=== PATIENT | female | born 1975 | race Caucasian/White ===

== ENCOUNTER → 2016-07-21 | Day surgery (SDC) | payer BC ==
--- NOTE | 2016-07-22 11:51 | PATH ---
Surgical Pathology Report Patient Name: MARCK VAZ [facility]. Rec. #: [id number] /Age/Gender: 1975 (Age: 41) / F Account: [id number] Location: [facility] Taken: 07/21/2016 Received: 07/21/2016 Reported: 07/22/2016 Physicians: Dimitris Pollack M.D. Specimen(s) Received LEFT BREAST SPECIMEN WITH MASS Clinical History Nonpalpable lesion Mammographic findings: Suspicious Final Diagnosis LEFT BREAST, STEREOTACTIC NEEDLE CORE BIOPSY: FIBROADENOMA, AND BENIGN BREAST TISSUE WITH FIBROCYSTIC CHANGES INCLUDING STROMAL FIBROSIS AND DUCTAL DILATATION WITH RARE ASSOCIATED CALCIFICATION. Comment: Recommend correlation with clinical and radiologic findings and follow up as clinically indicated. Electronically Signed Rogerio Tom M.D. Gross Description Received in formalin, labeled "left breast with mass," are multiple moreno-yellow, cylindrical portions of fibroadipose tissue ranging from 0.5-1.8 cm. in length and averaging 0.2 cm. in diameter. The specimen is submitted in toto in 4 cassette. Time to formalin fixation: 5 minutes Total formalin fixation time: Approximately 9.5 hours. [facility]/07/21/2016 [facility]/07/21/2016
== END | disposition home or self-care (01) ==
LOC: FMAMMOTONE 09:12
PROVIDERS: ATTEND Specialist
PROC: 0HBU0ZX Excision of Left Breast, Open Approach, Diagnostic (ICD-10-PCS; principal; 2016-07-21)
DX: D24.2 Benign neoplasm of left breast (principal); N60.12 Diffuse cystic mastopathy of left breast
CPT/HCPCS: 19081; 88305-TC

== ENCOUNTER 2016-12-02 06:22 | Inpatient (IN) | payer BC ==
[2016-12-01 09:23] VITALS: BMI 34.2
[2016-12-02] MEDS ORDERED: BUPIVACAINE HCL/PF 0.25% (2.5MG/ML) 10 ML VIAL ONE (07:55)
[2016-12-02] MEDS ORDERED: MIDAZOLAM HCL 2 MG/2 ML SINGLE DOSE VIAL ONE (07:59)
[2016-12-02] MEDS ORDERED: PROPOFOL 20 ML ONE ×3 (08:00)
[2016-12-02] MEDS ORDERED: ROCURONIUM BROMIDE 50 MG/5 ML VIAL ONE ×2 (08:00→09:07)
[2016-12-02] MEDS ORDERED: SUCCINYLCHOLINE CHLORIDE 200 MG/10 ML VIAL ONE (08:12)
[2016-12-02] MEDS ORDERED: ceFAZolin SODIUM 1 GM VIAL IVPB ONE (08:30)
[2016-12-02] MEDS ORDERED: HYDROmorphone HCL/PF 1 MG/ML VIAL (FOR PYXIS CHARGING ONLY) ONE ×2 (08:45→09:46)
[2016-12-02] MEDS ORDERED: NEOSTIGMINE METHYLSULFATE 0.5 MG/ML - 10 ML MDV ONE (08:59)
[2016-12-02] MEDS ORDERED: HYDROCORTISONE SOD SUCCINATE 2 ML ONE (09:45)
[2016-12-02] MEDS ORDERED: BUPIVACAINE HCL/PF 0.25% (2.5MG/ML) 10 ML VIAL STI ONE (10:26)
[2016-12-02] MEDS ORDERED: ONDANSETRON 4 MG/2 ML VIAL IVPB PRN (10:30)
[2016-12-02] MEDS ORDERED: METOCLOPRAMIDE HCL INJECTION 10 MG/2 ML VIAL IVPB PRN (10:32)
[2016-12-02] MEDS ORDERED: ONDANSETRON 4 MG/2 ML VIAL IVPUSH PRN (10:46)
[2016-12-02] MEDS ORDERED: METOCLOPRAMIDE HCL INJECTION 10 MG/2 ML VIAL ONE (10:57)
[2016-12-02] MEDS ORDERED: LACTATED RINGERS SOLUTION 1,000 ML IV SCH (11:00)
[2016-12-02] MEDS ORDERED: PROMETHAZINE HCL 25 MG/1 ML VIAL ONE (11:08)
[2016-12-02] MEDS ORDERED: PROMETHAZINE HCL 25 MG/1 ML VIAL IVPB PRN (11:10)
[2016-12-02 11:35] LABS: MCH 29.7 pg (25.7-33.7); MCHC 33.4 g/dl (32.0-36.0); MEAN PLT VOLUME 8.7 fl (7.5-11.1); PLATELET COUNT 151 K/MM3 (134-434); RDW 14.2 % (11.6-15.6); WHITE BLOOD COUNT 12.7 K/mm3 (4.0-10.0)
[2016-12-02 12:03] LABS: ALBUMIN 3.9 g/dl (3.4-5.0); ALK PHOS 60 U/L (45-117); ANION GAP 8 (8-16); BILIRUBIN,TOTAL 0.6 mg/dL (0.2-1.0); CALCIUM 8.3 mg/dL (8.5-10.1); CO2 27 mmol/L (21-32); CREATININE 0.9 mg/dL (0.55-1.02); GLUCOSE,RANDOM 163 mg/dL (74-106); SGOT/AST 20 U/L (15-37); SGPT/ALT 32 U/L (12-78); TOT PROT 6.9 g/dl (6.4-8.2)
--- NOTE | 2016-12-02 12:36 | HP ---
DATE OF ADMISSION: 12/02/2016 CHIEF COMPLAINT: Morbid obesity. HISTORY OF PRESENT ILLNESS: This patient is a 41-year-old woman with a history of morbid obesity despite many attempts at dietary weight loss. The patient also has sleep apnea, which is significant because of her morbid obesity, and she was worked up with cardiac, nutrition, psychological evaluations and clearances prior to undergoing elective sleeve gastrectomy surgery. PAST MEDICAL HISTORY: Significant for: 1. Hypothyroidism. 2. Anxiety. PAST SURGICAL HISTORY: Significant for: 1. Laparoscopic cholecystectomy. 2. Hysterectomy. 3. Tubal ligation. ALLERGIES: Patient has no known allergies. REVIEW OF SYSTEMS: 1. Review of the pulmonary system within normal limits. 2. Review of the cardiovascular within normal limits. 3. Review of the gastrointestinal system within normal limits. 4. Review of the musculoskeletal system within normal limits. PHYSICAL EXAMINATION: General: Patient is awake, alert, slightly to moderately anxious, in no acute distress. HEENT: No masses palpated. Lungs: Clear bilaterally. Heart: Regular sinus rhythm. Abdomen: Well-healed incisions, positive for obesity, soft, nontender on palpation. Extremities: Within normal limits. IMPRESSION: Morbid obesity. PLAN: OR for laparoscopic vertical sleeve gastrectomy. Lion [id number]
--- NOTE | 2016-12-02 13:37 | OP ---
DATE OF OPERATION: 12/02/2016 PREOPERATIVE DIAGNOSES: 1. Morbid obesity. 2. Sleep apnea. POSTOPERATIVE DIAGNOSES: 1. Morbid obesity. 2. Sleep apnea. 3. Abdominal adhesions. PROCEDURE PERFORMED: 1. Laparoscopic vertical sleeve gastrectomy. 2. Laparoscopic lysis of adhesions. 3. Diagnostic laparoscopy. OPERATING SURGEON: Catalino Graham MD CAN[employer]AS GOODS SUPERVISOR: Jose M Meza MD ANESTHESIA: General. EXPECTED BLOOD LOSS: 30 mL. DESCRIPTION OF PROCEDURE: The patient was brought into the operating room, placed on the OR table in a supine position. All precautions were taken initially including padding for the back and the feet, and Venodyne boots were placed on both lower extremities. At that point, the abdomen was prepped and draped in the usual manner. A Veress needle was placed in the left upper quadrant, and a pneumoperitoneum was established. A No. 12 bladeless trocar was placed in the left upper quadrant. Through that trocar, laparoscopic camera was placed. Upon placing the camera, there was noted to be a large amount of adhesions in the left upper quadrant, which was going to reduce the visibility of the stomach. A No. 15 bladeless trocar was then placed in the midline in a supraumbilical position and a No. 5 bladeless trocar in the right upper quadrant. Placing the camera now through the No. 15 trocar in the midline and using a No. 5 right upper quadrant trocar, the adhesions in the left upper quadrant were lysed with laparoscopic scissors. Once they were completely freed up, the left upper quadrant was now free of adhesions, and visualization of the stomach was more proper. At this point, a No. 5 bladeless trocar was placed in the left upper quadrant below the left costal margin. A Olga liver retractor was placed in the epigastrium to retract the left lobe of the liver. The patient was then placed in 20-degree reverse Trendelenburg position, and the pylorus was found on the distal stomach. Then 6 cm was measured proximally to there, and there on the greater curve with the operating surgeon lifting the stomach up toward the anterior abdominal wall, the health information assistant surgeon retracted the gastrocolic ligament inferiorly. The LigaSure device was used to dissect the gastrocolic ligament off the greater curve of the stomach. This continued in a superior and vertical direction as I continued to dissect the short gastric vessels off the greater curve until a final short gastric vessel was divided between the superior pole of the spleen and the proximal fundus. At this juncture, Anesthesia removed the orogastric tube and placed a No. 40 bougie. With the bougie held along the lesser curve, a series of carter was performed with the first 2 carter being backloaded 6 cm in length along the bougie. This was followed by a series of purple load carter continuing until a final staple was fired in the left upper quadrant and the greater curve was now completely detached from the lesser curve. At this juncture, saline was placed around the staple line. Anesthesia inserted air into the bougie, which showed the entire stomach distended down to the pylorus. No obstruction and no leaks were noted. At this point, the resected greater curve was removed through the No. 15 trocar site and sent off the field as specimen. Under direct vision, the No. 15 and No. 12 trocars were closed with Endo Close device to prevent internal hernia and prevent bleeding. Under direct vision, all trocars were removed and pneumoperitoneum was released. All trocar sites then received 0.25% Marcaine and were closed with 4-0 Biosyn in subcuticular fashion. Dressings were applied. The patient was awoken from anesthesia and transferred out of the operating room to the recovery room in stable condition. Lion [id number]
[2016-12-02] MEDS ORDERED: BUPIVACAINE HCL/PF 0.5% (5MG/ML) 10 ML VIAL ONE (13:47)
[2016-12-02] MEDS: SODIUM CHLORIDE 1,000 ML IV SCH (17:00)
[2016-12-02] MEDS ORDERED: ACETAMINOPHEN INJECTION 100 ML IVPB ONE (17:05)
[2016-12-02] MEDS ORDERED: ACETAMINOPHEN 1000 MG/100 ML VIAL (NON FORMULARY) IVPB ONE (17:10)
[2016-12-02] MEDS: ENOXAPARIN NA (PORCINE) 40 MG/0.4 ML DISP.SYRIN SQ SCH (21:12)
[2016-12-02] MEDS: HYDROmorphone HCL CARPU-JECT 1 MG/1 ML DISP.SYRIN IVPB PRN (21:12)
[2016-12-02] MEDS: FAMOTIDINE 20 MG/50 ML IVPB 50 ML IVPB SCH (21:12)
[2016-12-03] MEDS: HYDROmorphone HCL CARPU-JECT 1 MG/1 ML DISP.SYRIN IVPB PRN ×3 (01:45→11:08)
[2016-12-03] MEDS: ACETAMINOPHEN 1000 MG/100 ML VIAL (NON FORMULARY) IVPB PRN ×2 (01:45→09:59)
[2016-12-03] MEDS: SODIUM CHLORIDE 1,000 ML IV SCH (01:45)
[2016-12-03 07:38] LABS: MCH 30.6 pg (25.7-33.7); MCHC 34.4 g/dl (32.0-36.0); MEAN CELL VOLUME 88.9 fl (80-96); PLATELET COUNT 152 K/MM3 (134-434); RDW 13.5 % (11.6-15.6); WHITE BLOOD COUNT 9.1 K/mm3 (4.0-10.0)
[2016-12-03 08:05] LABS: ALBUMIN 3.3 g/dl (3.4-5.0); ALK PHOS 47 U/L (45-117); ANION GAP 9 (8-16); BILIRUBIN,TOTAL 0.7 mg/dL (0.2-1.0); CALCIUM 7.7 mg/dL (8.5-10.1); CO2 28 mmol/L (21-32); CREATININE 0.6 mg/dL (0.55-1.02); GLUCOSE,RANDOM 87 mg/dL (74-106); SGOT/AST 16 U/L (15-37); SGPT/ALT 24 U/L (12-78); TOT PROT 5.8 g/dl (6.4-8.2)
[2016-12-03] MEDS: FAMOTIDINE 20 MG/50 ML IVPB 50 ML IVPB SCH (10:01)
[2016-12-03] MEDS: ENOXAPARIN NA (PORCINE) 40 MG/0.4 ML DISP.SYRIN SQ SCH (10:02)
[2016-12-03] MEDS ORDERED: OXYCODONE/APAP 5/325MG COMBO TABLET PO PRN (13:54)
[2016-12-03] MEDS ORDERED: SODIUM CHLORIDE 1,000 ML IV SCH (14:00)
--- NOTE | 2016-12-03 14:00 | PN ---
Progress Note (short form) - Note Progress Note: POD#1 T(max)-100.2 Presently afebrile P-50-60 BP-124/68 Pt doing well No N/V C/O gas pain in epigastrium OOB in chair, walking frequently Using incentive spirometer P/E- all incisions clean, dry WBC-9.1 H/H-11.3/34.8 UGI- no leak, no obstruction P- Begin PO clear liquids- 2 oz PO TID Encourage OOB Cont DVT prophylaxis
[2016-12-03] MEDS ORDERED: SIMETHICONE 80 MG TAB.CHEW (FP) PO PRN (14:13)
[2016-12-03 15:11] VITALS: BP 140/86; PULSE 49; TEMP 98.6
--- NOTE | 2016-12-04 07:29 | PN ---
Progress Note, Physician Chief Complaint: s/p lap gastric sleeve under general anesthesia History of Present Illness: post op day one - Objective Vital Signs: Vital Signs Temperature 98.6 F 12/03/16 14:00 Pulse Rate 49 L 12/03/16 14:00 Respiratory Rate 18 12/03/16 14:00 Blood Pressure 140/86 12/03/16 14:00 O2 Sat by Pulse Oximetry (%) 97 12/03/16 09:00 Constitutional: Yes: Well Nourished Cardiovascular: Yes: WNL Respiratory: Yes: WNL Gastrointestinal: Yes: Abdomen, Obese, Tenderness Labs: CBC, BMP 12/03/16 07:19 12/03/16 07:19 Assessment/Plan patient complaining of gas pain after swallow study, incision pain minimal, no nausea or vomiting, no other adverse effects of anesthetic, dept of anesthesia will sign off care at this time.
--- NOTE | 2016-12-05 12:30 | PATH ---
Surgical Pathology Report Patient Name: MARCK VAZ [facility]. Rec. #: [id number] /Age/Gender: 1975 (Age: 41) / F Account: [id number] Location: 4 W TELEMETRY U Taken: 12/02/2016 Received: 12/02/2016 Reported: 12/05/2016 Physicians: Catalino Graham M.D. Specimen(s) Received GREATER CURVATURE STOMACH Clinical History Morbid obesity Final Diagnosis STOMACH, GREATER CURVATURE, LAPAROSCOPIC VERTICAL SLEEVE GASTRECTOMY: PORTION OF STOMACH WITH PATCHY MILD CHRONIC GASTRITIS. Electronically Signed Cristofer Hood M.D. Gross Description Received in formalin, labeled "greater curvature of stomach" is a 101 gram, 24.0 x 6.5 x 5.0 cm portion of stomach with a stapled margin of resection. The serosa is moreno-ruiz with minimal attached fat. The mucosa is moreno-pink with flattened folds. No mucosal masses are identified. Inverform Machine Operator sections are submitted in one cassette. /12/02/2016 [facility]12/02/2016
== END 2016-12-03 16:13 | disposition home or self-care (01) | DRG 621 ==
LOC: JSAMEDAYSX 06:22 → J4W 20:26
PROVIDERS: ADMIT Surgery; ATTEND Surgery
PROC: 0DB64Z3 Excision of Stomach, Percutaneous Endoscopic Approach, Vertical (ICD-10-PCS; principal; 2016-12-02 08:00)
DX: E66.01 Morbid (severe) obesity due to excess calories (principal); Z68.35 Body mass index [BMI] 35.0-35.9, adult; Z71.3 Dietary counseling and surveillance; J45.909 Unspecified asthma, uncomplicated; K21.9 Gastro-esophageal reflux disease without esophagitis; E06.3 Autoimmune thyroiditis; Z87.891 Personal history of nicotine dependence
CPT/HCPCS: 36415; 74241-TC; 80053; 85027; 86850; 86900; 86901; 88305-TC; 94760

== ENCOUNTER → 2019-06-24 | Day surgery (SDC) | payer BC ==
--- NOTE | 2019-06-25 14:36 | PATH ---
Surgical Pathology Report Patient Name: MARCK VAZ Med. Rec. #: [id number] /Age/Gender: 1975 (Age: 44) / F Account: [id number] Location: [facility]IOLOGY [facility] Taken: 06/24/2019 Received: 06/24/2019 Reported: 06/25/2019 Physicians: Dimitris Tirado M.D. Specimen(s) Received U/S GUIDED 14G CORE BX OF LEFT BREAST 3:00 0.9 CM MASS Clinical History Nonpalpable lesion Postoperative diagnosis: Suspicious Final Diagnosis LEFT BREAST, 3:00, ULTRASOUND GUIDED NEEDLE BIOPSY: SCLEROSING INTRADUCTAL PAPILLOMA WITH FOCAL ATYPIA, AND FIBROADENOMATOID CHANGES. Comment: This case was discussed with Dr. Casas at 2:18 PM on June 25, 2019. Electronically Signed Rogerio Tom M.D. Gross Description Received in formalin labeled "left breast 3:00," are 4 moerno-yellow, cylindrical portions of fibroadipose tissue ranging from 0.6-1.2 cm in length and averaging 0.1 cm in diameter. The specimens are submitted in toto in one cassette. Time to formalin fixation: Less than one minute Total formalin fixation time: Approximately 8 hours. DL/06/24/2019 [place]/06/24/2019
== END | disposition home or self-care (01) ==
LOC: JRADUS 08:52 → JRADUS-SUR 08:52
PROVIDERS: ATTEND Specialist
PROC: 0H9T3ZX Drainage of Right Breast, Percutaneous Approach, Diagnostic (ICD-10-PCS; principal; 2019-06-24)
DX: D24.1 Benign neoplasm of right breast (principal); N60.21 Fibroadenosis of right breast
CPT/HCPCS: 19083; 87899; 88305-TC; A4648

== ENCOUNTER 2019-07-18 06:28 | Day surgery (SDC) | payer BC ==
--- NOTE | 2019-07-17 11:23 | HP ---
Admitting History and Physical - Primary Care Physician PCP: Lion Sherwood - Admission Chief Complaint: left breast atypia History of Present Illness: Patient is a 44 yo female with dense breasts on mammo, who also underwent an US which was c/w a left breast mass at 3 oclock position. Patient had a left US guided core bx on 06/24/2019 which was c/w intraductal papilloma with atypia. Patient is now presenting for a left breast WE with NL. History Source: Patient Limitations to Obtaining History: No Limitations - Past Medical History Gastrointestinal: Yes: Irritable Bowel Disease ...LMP: 07/15/11 Endocrine: Yes: Hypothyroidism, Other (Jose Antonio's thyroiditis) - Past Surgical History Past Surgical History: Yes: Appendectomy, Cholecystectomy, (x2), Hysterectomy Additional Past Surgical History: Gastric sleeve (2017) laminectomy Left knee ACL repair Cystectomy x 5 - Smoking History Smoking history: Former smoker Have you smoked in the past 12 months: No Aproximately how many cigarettes per day: 20 If you are a former smoker, when did you quit?: 2YRS AGO - Alcohol/Substance Use Hx Alcohol Use: Yes (SOCIALLY) - Social History Occupation: works in [place] at [employer] Home Medications - Allergies Allergies/Adverse Reactions: Allergies Allergy/AdvReac Type Severity Reaction Status Date / Time No Known Drug Allergies Allergy (THROAT Verified 12/02/16 07:20 SWELLING) RAISINS Allergy Intermediate Uncoded 12/02/16 07:20 - Home Medications Home Medications: Ambulatory Orders Levothyroxine [Synthroid -] 175 mcg PO DAILY #0 tablet 02/04/12 Alprazolam [Xanax] 0.5 mg PO PRN PRN #0 tablet 07/18/14 Famotidine [Pepcid] 20 mg PO BID #60 tablet 12/03/16 Oxycodone HCl/Acetaminophen [Percocet 5-325 mg Tablet] 1 tab PO Q6H PRN #20 tablet MDD 4 12/03/16 Family Medical History Family Hx Cancer: Grandfather (maternal) (prostate cancer), Father (lung cancer) Other Family History: maternal GM-cirrhosis. mat aunt-liver cancer. mat uncle- CRC Review of Systems - Review of Systems Constitutional: reports: No Symptoms Cardiovascular: reports: No Symptoms Respiratory: reports: No Symptoms Physical Examination Constitutional: Yes: Well Nourished, Calm Breast(s): Yes: Other (Ptotic B-cup without skin changes or nipple discharge. No suspicious masses or bilateral adenopathy noted on exam.) Problem List - Problems (1) Atypical hyperplasia of left breast Code(s): N60.92 - UNSPECIFIED BENIGN MAMMARY DYSPLASIA OF LEFT BREAST Assessment/Plan Left breast WE with NL
[2019-07-17 16:11] VITALS: BMI 21.2
[2019-07-18] MEDS ORDERED: LIDOCAINE HCL 1%, 10 MG/ML (20ML VIAL) ONE (09:29)
[2019-07-18] MEDS ORDERED: BUPIVACAINE HCL 0.25% 125 MG/50 ML VIAL ONE (09:29)
[2019-07-18] MEDS ORDERED: PROPOFOL 20 ML ONE (09:55)
[2019-07-18] MEDS ORDERED: SUCCINYLCHOLINE CHLORIDE 200 MG/10 ML SYRINGE ONE (09:55)
[2019-07-18] MEDS ORDERED: fentaNYL CITRATE 250 MCG/5 ML VIAL ONE (09:55)
[2019-07-18] MEDS ORDERED: MIDAZOLAM HCL 2 MG/2 ML SINGLE DOSE VIAL ONE ×2 (09:55)
[2019-07-18] MEDS ORDERED: KETOROLAC TROMETHAMINE 30 MG/1 ML VIAL IVPUSH PRN (10:12)
[2019-07-18] MEDS ORDERED: ONDANSETRON 4 MG/2 ML VIAL IVPUSH PRN ×2 (10:12→11:24)
[2019-07-18] MEDS ORDERED: DEXTROSE 5%-0.45% SALINE 1,000 ML IV SCH (10:15)
[2019-07-18] MEDS ORDERED: ceFAZolin SODIUM 1 GM VIAL ONE (10:33)
[2019-07-18] MEDS ORDERED: DEXAMETHASONE SOD PHOSPHATE 4 MG/1 ML VIAL ONE (10:33)
[2019-07-18] MEDS ORDERED: LIDOCAINE HCL 1%, 10 MG/ML (20ML VIAL) INF ONE (10:34)
[2019-07-18] MEDS ORDERED: BUPIVACAINE HCL/PF 0.25% (2.5MG/ML) 10 ML VIAL IJ ONE (11:00)
[2019-07-18] MEDS ORDERED: oxyCODONE HCL 5 MG TABLET PO PRN ×2 (11:24)
[2019-07-18] MEDS ORDERED: ONDANSETRON 4 MG/2 ML VIAL ONE (11:26)
[2019-07-18] MEDS ORDERED: LACTATED RINGERS SOLUTION 1,000 ML IV SCH (11:30)
[2019-07-18] MEDS ORDERED: KETOROLAC TROMETHAMINE 30 MG/1 ML VIAL ONE (11:54)
--- NOTE | 2019-07-18 12:03 | OP ---
DATE OF OPERATION: 07/18/2019 PREOPERATIVE DIAGNOSIS: Left breast sclerosed papilloma with atypia. POSTOPERATIVE DIAGNOSIS: Left breast sclerosed papilloma with atypia, status post excision. PROCEDURE: Left breast wide excision with mammographic needle localization. ANESTHESIA: Local with IV sedation. SURGEON: Tahir Sherwood MD CONCRETE FINISHER: BELEN Swenson COMPLICATIONS: None. Briefly, the patient is a 44-year-old, G2, P2, postmenopausal white female of [place] descent. She has no family history of breast or ovarian cancer. Her maternal grandfather had prostate cancer and maternal uncle had colon cancer. Father had lung cancer and maternal aunt had liver cancer. The patient underwent a mammography and ultrasound which showed a left breast 3 o'clock, 9-mm density. An ultrasound-guided core biopsy showed a sclerosed intraductal papilloma with atypia. I reviewed the films, and the density was slightly irregular and, given the pathology, needed to be excised widely. The patient understood the procedure and was brought in for a left breast wide excision with mammographic needle localization on July 18, 2019. She first underwent the mammographic localization and then was brought to the holding area. In the holding area, site verification was made, and informed consent was obtained. She was brought into the operating room and laid on the OR table in the supine position. Venodynes were placed on the lower extremities. She received IV sedation, and the left breast was sterilely prepped and draped in the usual fashion. Timeout was performed. Next, 1% lidocaine was given in a curvilinear fashion in the periareolar region of the left breast nipple-areolar complex. Dissection was undertaken around the needle localization wire, and the breast tissue was completely removed from around the wire with the wire intact within the middle of the specimen. The specimen was oriented with a long lateral, short superior suture, and specimen radiographs showed removal of the density and clip in question. The density was actually easily palpable after the tissue was dissected. It was grossly fully removed. The specimen underwent a specimen radiograph, showed removal of the clip in question. It was oriented with a long lateral, short superior suture and sent to Pathology in formalin as specimen. Hemostasis was achieved. The breast parenchyma was reapproximated using 2-0 plain suture, and the skin was closed using interrupted 3-0 deep dermal Vicryl suture and a running 4-0 subcuticular Biosyn suture. Mastisol and Steri-Strips were applied over the wound, with a compressive dressing placed over this. She tolerated the procedure well, without difficulty and was brought to the postanesthesia care unit in stable condition. She will be discharged home the same day once discharge criteria are met. TAHIR SHERWOOD M.D. [id number]
[2019-07-18 12:26] VITALS: TEMP 98.4
[2019-07-18 13:16] VITALS: BP 107/52; PULSE 57
--- NOTE | 2019-07-22 15:46 | PATH ---
Surgical Pathology Report Patient Name: MARCK VAZ Med. Rec. #: [id number] /Age/Gender: 1975 (Age: 44) / F Account: [id number] Location: [facility] Taken: 07/18/2019 Received: 07/18/2019 Reported: 07/22/2019 Physicians: Lion Sherwood M.D. Specimen(s) Received LEFT BREAST WIDE EXCISON Clinical History Core with sclerosing papilloma with atypia Final Diagnosis BREAST, LEFT, WIDE EXCISION: BENIGN BREAST PARENCHYMA WITH FIBROADENOMATOID CHANGES INCLUDING STROMAL FIBROSIS, MICROCYSTS, CYSTIC APOCRINE METAPLASIA, USUAL DUCTAL HYPERPLASIA, SCLEROSING ADENOSIS, FOCAL COLUMNAR CELL CHANGES, AND ASSOCIATED MICROCALCIFICATIONS. CHANGES OF PRIOR BIOPSY PRESENT. Comment: Immunohistochemical stains performed and interpreted at [facility] for P63 and [facility] used to evaluate this case. Prior material is noted. Positive and negative controls (internal if applicable) show appropriate results. Electronically Signed Charley Marquez M.D. Gross Description Received in formalin, labeled "left breast wide excision," is a 4.4 x 2.7 x 1.7 cm. moreno-yellow, irregular, portion of fibroadipose tissue with a needle localization wire present. There is a short suture marking the superior aspect and a long suture marking the lateral aspect, per the surgeon. There is no skin or nipple present. The specimen is inked as follows: superior and lateral blue; inferior green; medial yellow; anterior red; deep black. The specimen is serially sectioned from lateral to medial. Sectioning reveals abundant dense, white, focally firm fibrous tissue. There is a polanco metallic biopsy clip identified. No definitive mass is identified. The specimen is entirely and sequentially submitted in 11 cassettes with a lateral margin in cassette 1 and the medial margin in cassette 11 (biopsy clip in cassette 3). Total formalin fixation time: 31 hours. 07/19/201907/19/2019
== END 2019-07-18 13:10 | disposition home or self-care (01) ==
LOC: FASU 06:28
PROVIDERS: ATTEND Surgery Surgical Oncology
PROC: 0HBU0ZZ Excision of Left Breast, Open Approach (ICD-10-PCS; principal; 2019-07-18 10:34)
DX: D24.2 Benign neoplasm of left breast (principal); N60.92 Unspecified benign mammary dysplasia of left breast
CPT/HCPCS: 19281; 76098-TC-FY; 88307-TC; 94760

== ENCOUNTER → 2020-07-09 | Day surgery (SDC) | payer BC | END | disposition home or self-care (01) | LOC: FMAMMOTONE 11:44 | PROVIDERS: ATTEND Surgery Surgical Oncology | PROC: 0H9U3ZX Drainage of Left Breast, Percutaneous Approach, Diagnostic (ICD-10-PCS; principal; 2020-07-09) | DX: D05.12 Intraductal carcinoma in situ of left breast (principal) | CPT/HCPCS: 19081; 76098-TC-FY; 87899; 88305-TC; 88342-TC; A4648 ==

== ENCOUNTER 2021-07-20 10:27 | Observation (INO) | payer BC ==
[2021-07-15 11:11] VITALS: BMI 24.3
[2021-07-20] MEDS ORDERED: LIDOCAINE HCL/PF 2% SDV 5ML VIAL ONE (13:29)
[2021-07-20] MEDS ORDERED: ONDANSETRON 4 MG/2 ML VIAL ONE ×2 (13:29→16:46)
[2021-07-20] MEDS ORDERED: PROPOFOL 20 ML ONE ×2 (13:29→15:45)
[2021-07-20] MEDS ORDERED: MIDAZOLAM HCL 2 MG/2 ML SINGLE DOSE VIAL ONE (13:48)
[2021-07-20] MEDS ORDERED: ROCURONIUM BROMIDE 50 MG/5 ML SYRINGE ONE (14:03)
[2021-07-20] MEDS ORDERED: ePHEDrine SULFATE 50 MG/1 ML AMPULE ONE (14:14)
[2021-07-20] MEDS ORDERED: BUPIVACAINE HCL/PF 0.25% (2.5MG/ML) 10 ML VIAL ONE (14:33)
[2021-07-20] MEDS ORDERED: NEOSTIGMINE METHYLSULFATE 0.5 MG/1 ML - 10 ML MDV ONE (15:51)
[2021-07-20] MEDS ORDERED: ONDANSETRON 4 MG/2 ML VIAL IVPUSH PRN (16:11)
[2021-07-20] MEDS ORDERED: HYDROmorphone HCL/PF 1 MG/ML VIAL IVPB PRN (16:13)
[2021-07-20] MEDS ORDERED: SODIUM CHLORIDE 1,000 ML IV SCH (16:15)
[2021-07-20] MEDS ORDERED: oxyCODONE HCL 5 MG TABLET PO PRN ×2 (16:30→20:55)
[2021-07-20] MEDS ORDERED: LACTATED RINGERS SOLUTION 1,000 ML IV SCH (16:30)
[2021-07-20] MEDS ORDERED: ceFAZolin SODIUM 1 GM VIAL ONE (21:03)
[2021-07-20] MEDS ORDERED: DEXTROSE 5%-WATER - 50 ML IVPB ONE (21:04)
[2021-07-20] MEDS: HYDROmorphone HCL/PF 1 MG/ML VIAL IVPB PRN (21:05)
[2021-07-20] MEDS: FAMOTIDINE 20 MG/50 ML IVPB 20 MG/50 ML MG IVPB SCH (21:05)
[2021-07-20] MEDS: CEFAZOLIN 1 GM in DEXTROSE 5%-WATER - 50 ML IVPB SCH (21:05)
[2021-07-20] MEDS: TAMOXIFEN CITRATE 10 MG TABLET PO SCH (22:00)
[2021-07-21] MEDS: HYDROmorphone HCL/PF 1 MG/ML VIAL IVPB PRN ×3 (01:23→13:08)
[2021-07-21] MEDS ORDERED: ceFAZolin SODIUM 1 GM VIAL ONE ×2 (05:42→14:39)
[2021-07-21] MEDS ORDERED: DEXTROSE 5%-WATER - 50 ML IVPB ONE ×2 (05:42→14:39)
[2021-07-21] MEDS: CEFAZOLIN 1 GM in DEXTROSE 5%-WATER - 50 ML IVPB SCH ×2 (05:45→14:47)
[2021-07-21] MEDS ORDERED: LEVOTHYROXINE NA 150 MCG TABLET PO ONE (06:39)
[2021-07-21] MEDS ORDERED: LEVOTHYROXINE NA 125 MCG TABLET (FP) PO SCH (07:00)
[2021-07-21 08:39] LABS: ALBUMIN 3.2 g/dl (3.4-5.0); BILIRUBIN,TOTAL 0.8 mg/dl (0.2-1); CALCIUM 8.3 mg/dl (8.5-10); CREATININE 0.6 mg/dl (0.55-1.3); TOT PROT 5.5 g/dl (6.4-8.2)
[2021-07-21 08:57] LABS: HEMATOCRIT 34.9 % (32.4-45.2); HEMOGLOBIN 11.6 GM/dL (10.7-15.3); MCHC 33.2 g/dl (32.0-36.0); MEAN CELL VOLUME 87.2 fl (80-96); MEAN PLT VOLUME 9.2 fl (7.5-11.1); PLATELET COUNT 150 10^3/uL (134-434); RDW 13.5 % (11.6-15.6); WHITE BLOOD COUNT 6.4 K/mm3 (4.0-10.0)
[2021-07-21] MEDS: FAMOTIDINE 20 MG/50 ML IVPB 20 MG/50 ML MG IVPB SCH (09:15)
[2021-07-21] MEDS: LEVOTHYROXINE 75 MCG, LEVOTHYROXINE 100 MCG PO SCH (09:16)
[2021-07-21] MEDS: SENNOSIDES/DOCUSATE COMBO (SENNA PLUS) TABLET (UD) PO SCH ×2 (09:20→21:16)
[2021-07-21] MEDS: VENLAFAXINE HCL 37.5 MG E.R. CAPSULE PO SCH (09:20)
[2021-07-21] MEDS ORDERED: ACETAMINOPHEN 325 MG TABLET (FP) PO PRN (18:07)
[2021-07-21] MEDS ORDERED: oxyCODONE HCL 5 MG TABLET PO PRN ×2 (18:07→21:35)
[2021-07-21] MEDS ORDERED: ONDANSETRON *ODT* 4 MG TABLET SL PRN (18:13)
[2021-07-21] MEDS: ALPRAZolam 0.25 MG TABLET PO SCH (21:16)
[2021-07-21] MEDS: TAMOXIFEN CITRATE 10 MG TABLET PO SCH (21:16)
[2021-07-21] MEDS: MEPERIDINE HCL 50 MG/ML VIAL IM PRN (21:56)
[2021-07-22] MEDS ORDERED: LEVOTHYROXINE NA 75 MCG TABLET (FP) ONE (06:18)
[2021-07-22] MEDS ORDERED: LEVOTHYROXINE NA 100 MCG TABLET (FP) ONE (06:18)
[2021-07-22] MEDS: LEVOTHYROXINE 75 MCG, LEVOTHYROXINE 100 MCG PO SCH (06:51)
[2021-07-22] MEDS: MEPERIDINE HCL 50 MG/ML VIAL IM PRN ×3 (08:16→20:02)
[2021-07-22 08:21] LABS: ALBUMIN 3.1 g/dl (3.4-5.0); BILIRUBIN,TOTAL 0.6 mg/dl (0.2-1); CREATININE 0.6 mg/dl (0.55-1.3); TOT PROT 5.5 g/dl (6.4-8.2)
[2021-07-22 09:11] LABS: HEMATOCRIT 33.1 % (32.4-45.2); HEMOGLOBIN 11.7 GM/dL (10.7-15.3); MCH 30.3 pg (25.7-33.7); MCHC 35.3 g/dl (32.0-36.0); MEAN CELL VOLUME 85.9 fl (80-96); MEAN PLT VOLUME 8.9 fl (7.5-11.1); PLATELET COUNT 132 10^3/uL (134-434); RBC 3.85 M/mm3 (3.60-5.2); RDW 13.7 % (11.6-15.6); WHITE BLOOD COUNT 5.4 K/mm3 (4.0-10.0)
[2021-07-22] MEDS: PANTOPRAZOLE 40 MG TABLET PO SCH (09:49)
[2021-07-22] MEDS: VENLAFAXINE HCL 37.5 MG E.R. CAPSULE PO SCH (09:50)
[2021-07-22] MEDS: POLYETHYLENE GLYCOL (HEALTHYLAX) 3350 17 GM PACKET PO SCH (09:50)
[2021-07-22] MEDS: SENNOSIDES/DOCUSATE COMBO (SENNA PLUS) TABLET (UD) PO SCH ×2 (09:50→21:21)
[2021-07-22] MEDS: TAMOXIFEN CITRATE 10 MG TABLET PO SCH (21:20)
[2021-07-22] MEDS: ALPRAZolam 0.25 MG TABLET PO SCH (21:21)
[2021-07-23] MEDS: MEPERIDINE HCL 50 MG/ML VIAL IM PRN ×4 (02:23→21:41)
[2021-07-23] MEDS ORDERED: LEVOTHYROXINE NA 75 MCG TABLET (FP) ONE (06:35)
[2021-07-23] MEDS ORDERED: LEVOTHYROXINE NA 100 MCG TABLET (FP) ONE (06:35)
[2021-07-23] MEDS: LEVOTHYROXINE 75 MCG, LEVOTHYROXINE 100 MCG PO SCH (06:44)
[2021-07-23] MEDS: VENLAFAXINE HCL 37.5 MG E.R. CAPSULE PO SCH (09:27)
[2021-07-23] MEDS: SENNOSIDES/DOCUSATE COMBO (SENNA PLUS) TABLET (UD) PO SCH ×2 (09:28→21:43)
[2021-07-23] MEDS: POLYETHYLENE GLYCOL (HEALTHYLAX) 3350 17 GM PACKET PO SCH (09:28)
[2021-07-23] MEDS: PANTOPRAZOLE 40 MG TABLET PO SCH (09:28)
[2021-07-23] MEDS ORDERED: predniSONE 20 MG TABLET (UD) PO SCH (10:00)
[2021-07-23] MEDS ORDERED: PROCHLORPERAZINE INJECTION 10 MG/2 ML VIAL IVPB PRN (14:40)
[2021-07-23] MEDS: ALPRAZolam 0.25 MG TABLET PO SCH (21:43)
[2021-07-23] MEDS: TAMOXIFEN CITRATE 10 MG TABLET PO SCH (21:44)
[2021-07-23] MEDS ORDERED: diphenhydrAMINE HCL 25 MG CAPSULE (FP) PO PRN (21:45)
[2021-07-24] MEDS: traMADol HCL 50 MG TABLET PO PRN ×3 (05:53→20:37)
[2021-07-24] MEDS ORDERED: LEVOTHYROXINE NA 100 MCG TABLET (FP) ONE (06:23)
[2021-07-24] MEDS ORDERED: LEVOTHYROXINE NA 75 MCG TABLET (FP) ONE (06:23)
[2021-07-24] MEDS: LEVOTHYROXINE 75 MCG, LEVOTHYROXINE 100 MCG PO SCH (06:36)
[2021-07-24 08:20] LABS: ALBUMIN 3.4 g/dl (3.4-5.0); BILIRUBIN,TOTAL 0.6 mg/dl (0.2-1); CALCIUM 8.5 mg/dl (8.5-10); CREATININE 0.7 mg/dl (0.55-1.3); TOT PROT 6.1 g/dl (6.4-8.2)
[2021-07-24] MEDS: SENNOSIDES/DOCUSATE COMBO (SENNA PLUS) TABLET (UD) PO SCH ×2 (09:41→21:43)
[2021-07-24] MEDS: POLYETHYLENE GLYCOL (HEALTHYLAX) 3350 17 GM PACKET PO SCH (09:41)
[2021-07-24] MEDS: VENLAFAXINE HCL 37.5 MG E.R. CAPSULE PO SCH (09:41)
[2021-07-24] MEDS: PANTOPRAZOLE 40 MG TABLET PO SCH (09:41)
[2021-07-24] MEDS ORDERED: BISACODYL 10 MG SUPP.RECT PR ONE (10:34)
[2021-07-24 11:26] LABS: HEMATOCRIT 38.8 % (32.4-45.2); HEMOGLOBIN 12.9 GM/dL (10.7-15.3); MCHC 33.2 g/dl (32.0-36.0); MEAN CELL VOLUME 87.3 fl (80-96); MEAN PLT VOLUME 9.7 fl (7.5-11.1); PLATELET COUNT 166 10^3/uL (134-434); RBC 4.45 M/mm3 (3.60-5.2); RDW 13.2 % (11.6-15.6); WHITE BLOOD COUNT 3.6 K/mm3 (4.0-10.0)
[2021-07-24] MEDS: ALPRAZolam 0.25 MG TABLET PO SCH (21:42)
[2021-07-24] MEDS: TAMOXIFEN CITRATE 10 MG TABLET PO SCH ×2 (21:43→21:44)
[2021-07-25] MEDS ORDERED: LEVOTHYROXINE NA 100 MCG TABLET (FP) ONE (06:47)
[2021-07-25] MEDS ORDERED: LEVOTHYROXINE NA 75 MCG TABLET (FP) ONE (06:47)
[2021-07-25] MEDS: LEVOTHYROXINE 75 MCG, LEVOTHYROXINE 100 MCG PO SCH (06:50)
[2021-07-25] MEDS: traMADol HCL 50 MG TABLET PO PRN (06:50)
[2021-07-25] MEDS: POLYETHYLENE GLYCOL (HEALTHYLAX) 3350 17 GM PACKET PO SCH (09:25)
[2021-07-25] MEDS: PANTOPRAZOLE 40 MG TABLET PO SCH (09:25)
[2021-07-25] MEDS: SENNOSIDES/DOCUSATE COMBO (SENNA PLUS) TABLET (UD) PO SCH (09:25)
[2021-07-25 09:30] VITALS: BP 111/67; PULSE 82; TEMP 97.9
[2021-07-25] MEDS ORDERED: Methylnaltrexone Bromide 12 MG/0.6 ML KIT SQ SCH (10:00)
[2021-07-25] MEDS: VENLAFAXINE HCL 37.5 MG E.R. CAPSULE PO SCH (10:20)
== END 2021-07-25 10:21 | disposition home or self-care (01) ==
LOC: FASUSAT 10:27 → FASU 10:27 → FM/S 16:11 → UNDOADMIN 16:11 → FASUSAT 20:29 → FM/S 20:29 → UNDOADMOB 07-21 10:28 → FM/S 07-21 10:28 → FASUSAT 07-24 15:13
PROVIDERS: ADMIT Surgery; ATTEND Surgery
PROC: 0WUF4JZ Supplement Abdominal Wall with Synthetic Substitute, Percutaneous Endoscopic Approach (ICD-10-PCS; principal; 2021-07-24)
PROC: 3E03329 Introduction of Other Anti-infective into Peripheral Vein, Percutaneous Approach (ICD-10-PCS; 2021-07-24)
PROC: 3E033NZ Introduction of Analgesics, Hypnotics, Sedatives into Peripheral Vein, Percutaneous Approach (ICD-10-PCS; 2021-07-24)
PROC: 3E0337Z Introduction of Electrolytic and Water Balance Substance into Peripheral Vein, Percutaneous Approach (ICD-10-PCS; 2021-07-24)
PROC: 3E023NZ Introduction of Analgesics, Hypnotics, Sedatives into Muscle, Percutaneous Approach (ICD-10-PCS; 2021-07-24)
PROC: 3E033GC Introduction of Other Therapeutic Substance into Peripheral Vein, Percutaneous Approach (ICD-10-PCS; 2021-07-24)
DX: K43.2 Incisional hernia without obstruction or gangrene (principal); Z91.018 Allergy to other foods
CPT/HCPCS: 49654; 96365; 96367; 96372; 96375; S2900; 36415; 74019-TC-FY; 80053; 83690; 84443; 85027; 93970-TC; 94760; G0378; J2175

== ENCOUNTER 2022-05-16 04:23 | Day surgery (SDC) | payer BC ==
[2022-05-12 13:16] VITALS: BMI 26.6
[2022-05-16 10:55] VITALS: TEMP 98.2
[2022-05-16 11:10] VITALS: RESP 18
[2022-05-16 11:23] VITALS: BP 122/82; PULSE 68
== END 2022-05-16 11:33 | disposition home or self-care (01) ==
LOC: JASU-ENDO 04:23
PROVIDERS: ATTEND Internal Medicine Gastroenterology
PROC: 0DJD8ZZ Inspection of Lower Intestinal Tract, Via Natural or Artificial Opening Endoscopic (ICD-10-PCS; principal; 2022-05-16 11:00)
DX: Z12.11 Encounter for screening for malignant neoplasm of colon (principal); K59.00 Constipation, unspecified

== ENCOUNTER 2022-09-21 13:54 | Emergency (ER) | payer BC ==
[2022-09-21 14:20] VITALS: RESP 18; BMI 28.8
[2022-09-21] MEDS ORDERED: SODIUM CHLORIDE 1,000 ML IV STA (14:48)
[2022-09-21] MEDS ORDERED: ACETAMINOPHEN 1000 MG/100 ML BAG IVPB ONE (14:48)
[2022-09-21] MEDS ORDERED: ACETAMINOPHEN INJECTION 100 ML IVPB ONE (15:05)
[2022-09-21 15:29] LABS: INR 0.98 (0.83-1.09); PROTHROMBIN TIME (PATIENT) 11.3 SEC (9.7-13.0)
[2022-09-21 15:32] LABS: ACTIVATED PTT 28.2 SECONDS (25.2-36.5); BILIRUBIN,TOTAL 0.5 mg/dl (0.2-1); CALCIUM 8.8 mg/dl (8.5-10); CREATININE 0.7 mg/dl (0.55-1.3); PHOSPHOROUS 3.4 mg/dl (2.5-4.9); TOT PROT 7.2 g/dl (6.4-8.2)
[2022-09-21] MEDS ORDERED: diazePAM CARPU-JECT 10 MG/2 ML DISP.SYRIN IVPUSH ONE (17:27)
[2022-09-21] MEDS ORDERED: diazePAM CARPU-JECT 10 MG/2 ML DISP.SYRIN ONE (17:29)
[2022-09-21 17:31] LABS: BASO % 0.8 % (0-2.0); EOS % 2.8 % (0-4.5); HEMATOCRIT 39.3 % (32.4-45.2); HEMOGLOBIN 13.5 GM/dL (10.7-15.3); LYMPH % 23.5 % (8-40); MCH 29.8 pg (25.7-33.7); MCHC 34.3 g/dl (32.0-36.0); MEAN CELL VOLUME 86.8 fl (80-96); MONO % 5.6 % (3.8-10.2); NEUT % 67.3 % (42.8-82.8); PLATELET COUNT 213 10^3/uL (134-434); RBC 4.53 M/mm3 (3.60-5.2); RDW 14.1 % (11.6-15.6); WHITE BLOOD COUNT 7.9 K/mm3 (4.0-10.0)
[2022-09-21] MEDS ORDERED: KETOROLAC TROMETHAMINE 30 MG/1 ML VIAL IVPUSH ONE (17:59)
[2022-09-21] MEDS ORDERED: KETOROLAC TROMETHAMINE 30 MG/1 ML VIAL ONE (18:08)
[2022-09-21 18:23] VITALS: BP 98/67; PULSE 57; TEMP 98.5
== END 2022-09-21 19:08 | disposition home or self-care (01) ==
LOC: FER 13:54
PROC: 3E033NZ Introduction of Analgesics, Hypnotics, Sedatives into Peripheral Vein, Percutaneous Approach (ICD-10-PCS; principal; 2022-09-21)
PROC: 3E033NZ Introduction of Analgesics, Hypnotics, Sedatives into Peripheral Vein, Percutaneous Approach (ICD-10-PCS; 2022-09-21)
PROC: 3E0333Z Introduction of Anti-inflammatory into Peripheral Vein, Percutaneous Approach (ICD-10-PCS; 2022-09-21)
PROC: 3E0337Z Introduction of Electrolytic and Water Balance Substance into Peripheral Vein, Percutaneous Approach (ICD-10-PCS; 2022-09-21)
DX: R25.2 Cramp and spasm (principal); R06.02 Shortness of breath
CPT/HCPCS: 36415; 71046-TC-FY; 72131-TC; 74177-TC; 80053; 81003; 83735; 84100; 84439; 84443; 85025; 85610; 85730; 87086; 99285-25

== ENCOUNTER → 2024-03-26 | Day surgery (SDC) | payer BC | END | disposition home or self-care (01) | LOC: FRADUS-SUR 11:57 | PROVIDERS: ATTEND Physician Assistant | PROC: 0HBU3ZX Excision of Left Breast, Percutaneous Approach, Diagnostic (ICD-10-PCS; principal; 2024-03-26) | DX: N60.32 Fibrosclerosis of left breast (principal) | CPT/HCPCS: 19085; 77065-TC; 88305-TC; A4648 ==